=== PATIENT | female | born 1985 | race Caucasian/White ===

== ENCOUNTER 2016-05-31 20:36 | Emergency (ER) | payer MEDICAID ==
[2016-05-31] MEDS ORDERED: L.E.T. 3 ML SOLUTION TOPICAL ONE (21:42)
[2016-05-31] MEDS ORDERED: TDaP 0.5 ML VIAL IM.VACC ONE (21:43)
[2016-05-31] MEDS ORDERED: LIDOCAINE/EPI 1% MDV 20 ML ONE (22:02)
== END 2016-05-31 22:59 | disposition home or self-care (01) ==
LOC: ER 20:36
DX: S91.312A Laceration without foreign body, left foot, initial encounter (principal); W25.XXXA Contact with sharp glass, initial encounter; Y92.019 Unspecified place in single-family (private) house as the place of occurrence of the external cause; Z23 Encounter for immunization
CPT/HCPCS: 90471